=== PATIENT | female | born 1950 | race American Indian/Alaskan Native ===

== ENCOUNTER 2017-01-12 18:45 | Emergency (ER) | payer MEDICARE ==
[2017-01-12 19:24] VITALS: BP 142/87
[2017-01-12] MEDS ORDERED: TYLENOL PO ONE (19:33)
[2017-01-12 20:22] LABS: Bilirubin,Urine NEG (Negative); Blood,Urine SM (Negative); Ketones,Urine NEG (Negative); Leukocyte Esterase,Urine NEG (Negative); Mucus,Urine FEW /HPF; Nitrite,Urine NEG (Negative); Urobilinogen,Urine < 2.0 mg/dL (<2.0)
[2017-01-12 20:23] LABS: Basophils % (Auto) 0.7 % (0.0-1.8); Eosinophils % (Auto) 0.1 % (0.0-4.3); Mean Corpuscular HGB Conc 31 % (30-34); Mean Corpuscular Volume 76 fl (79-97); Platelet Count 339 K/mm3 (140-440); Red Blood Count 4.71 M/mm3 (3.65-5.03); Red Cell Distribution Width 15.1 % (13.2-15.2); White Blood Count 7.8 K/mm3 (4.5-11.0)
[2017-01-12 20:26] LABS: Mean Corpuscular Hemoglobin 24 pg (28-32)
[2017-01-12 20:34] LABS: Anion Gap 21 mmol/L; BUN/Creatinine Ratio 17.77; Blood Urea Nitrogen 16 mg/dL (7-17); Calcium 9.4 mg/dL (8.4-10.2); Carbon Dioxide 24 mmol/L (22-30); Chloride 95.1 mmol/L (98-107); Glucose 124 mg/dL (65-100); Potassium 3.5 mmol/L (3.6-5.0); Sodium 137 mmol/L (137-145)
--- NOTE | 2017-01-14 21:34 | ED Elopement Review ---
ED Pt Elopement review - Results review Lab results: Laboratory Tests 01/12/17 01/12/17 01/12/17 19:28 19:53 20:00 WBC 7.8 RBC 4.71 Hgb 11.0 Hct 36.0 MCV 76 L MCH 24 L MCHC 31 RDW 15.1 Plt Count 339 Lymph % (Auto) 9.2 L [place] % (Auto) 4.8 Eos % (Auto) 0.1 Baso % (Auto) 0.7 Lymph # 0.7 L [place] # 0.4 Eos # 0.0 Baso # 0.1 Seg Neutrophils % 85.2 H Seg Neutrophils # 6.7 Sodium Potassium Chloride Carbon Dioxide Anion Gap BUN Creatinine Estimated GFR BUN/Creatinine Ratio Glucose POC Glucose 144 H Calcium Urine Color Yellow Urine Turbidity Clear Urine pH 5.0 Ur Specific [place] 1.023 Urine Protein 30 mg/dl Urine Glucose (UA) Neg Urine Ketones Neg Urine Blood Sm Urine Nitrite Neg Urine Bilirubin Neg Urine Urobilinogen < 2.0 Ur Leukocyte Esterase Neg Urine WBC (Auto) 1.0 Urine RBC (Auto) 2.0 U Epithel Cells (Auto) 1.0 Urine Mucus Few 01/12/17 20:00 WBC RBC Hgb Hct MCV MCH MCHC RDW Plt Count Lymph % (Auto) [place] % (Auto) Eos % (Auto) Baso % (Auto) Lymph # [place] # Eos # Baso # Seg Neutrophils % Seg Neutrophils # Sodium 137 Potassium 3.5 L Chloride 95.1 L Carbon Dioxide 24 Anion Gap 21 BUN 16 Creatinine 0.9 Estimated GFR > 60 BUN/Creatinine Ratio 17.77 Glucose 124 H POC Glucose Calcium 9.4 Urine Color Urine Turbidity Urine pH Ur Specific [place] Urine Protein Urine Glucose (UA) Urine Ketones Urine Blood Urine Nitrite Urine Bilirubin Urine Urobilinogen Ur Leukocyte Esterase Urine WBC (Auto) Urine RBC (Auto) U Epithel Cells (Auto) Urine Mucus - Call Back decision Pt Call Back Decision: Call pt to return to ED [facility] (HR 116, fever)
== END 2017-01-12 23:15 | disposition left against medical advice (07) ==
LOC: ED 18:45
DX: R11.2 Nausea with vomiting, unspecified (principal); R19.7 Diarrhea, unspecified; R30.0 Dysuria; Z53.21 Procedure and treatment not carried out due to patient leaving prior to being seen by health care provider
CPT/HCPCS: 36415; 80048; 81001; 82962; 85025